=== PATIENT | female | born 1995 | race Caucasian/White ===

== ENCOUNTER → 2023-07-15 | Outpatient (CLI) | payer BC ==
[~2023-07-15] MED LIST: ANUS2.5C2 PR; COLA50CA3 PO; IBUP80TA PO; MAPA500T17 PO; MOM30SS PO; PRENTAB9 PO
[2023-07-15 15:42] LABS: HEMATOCRIT 39.4 % (36.0-47.0); HEMOGLOBIN 13.6 g/dl (12.0-15.5); MEAN CORPUSCULAR HEMOGLOBIN 32.2 pg (27.0-33.0); MEAN CORPUSCULAR HGB CONC 34.5 g/dl (32.0-36.5); MEAN CORPUSCULAR VOLUME 93.4 fl (80.0-96.0); PLATELET COUNT, AUTOMATED 214 10^3/uL (150-450); RED BLOOD COUNT 4.22 10^6/uL (4.00-5.40); WHITE BLOOD COUNT 7.5 10^3/uL (4.0-10.0)
[2023-07-15 16:46] LABS: HIV 1&2 SCREEN NEGATIVE (NEGATIVE)
[2023-07-15 16:53] LABS: HEPATITIS C VIRUS ABY INDEX 0.12 INDEX (<0.8)
[2023-07-15 17:31] LABS: GC DNA AMPLIFICATION NEGATIVE (NEGATIVE)
== END ==
LOC: M PLALAB 14:05
PROVIDERS: ATTEND Obstetrics & Gynecology
DX: Z34.91 Encounter for supervision of normal pregnancy, unspecified, first trimester (principal)

== ENCOUNTER → 2023-08-18 | Outpatient (CLI) | payer BC | LOC: M PLALAB 09:40 | PROVIDERS: ATTEND Obstetrics & Gynecology | DX: Z34.91 Encounter for supervision of normal pregnancy, unspecified, first trimester (principal) ==

== ENCOUNTER → 2023-09-28 | Outpatient (CLI) | payer BC | LOC: M WHC 08:22 | PROVIDERS: ATTEND Obstetrics & Gynecology | DX: Z34.92 Encounter for supervision of normal pregnancy, unspecified, second trimester (principal); Z3A.18 18 weeks gestation of pregnancy ==

== ENCOUNTER → 2023-11-19 | Outpatient (CLI) | payer BC ==
[2023-11-19 16:13] LABS: HEMATOCRIT 30.7 % (36.0-47.0); HEMOGLOBIN 10.6 g/dl (12.0-15.5); MEAN CORPUSCULAR HEMOGLOBIN 32.8 pg (27.0-33.0); MEAN CORPUSCULAR HGB CONC 34.5 g/dl (32.0-36.5); PLATELET COUNT, AUTOMATED 193 10^3/uL (150-450); RED BLOOD COUNT 3.23 10^6/uL (4.00-5.40); WHITE BLOOD COUNT 8.9 10^3/uL (4.0-10.0)
[2023-11-19 17:50] LABS: CHLAMYDIA DNA AMPLIFICATION NEGATIVE (NEGATIVE); GC DNA AMPLIFICATION NEGATIVE (NEGATIVE)
== END ==
LOC: M PLALAB 12:26
PROVIDERS: ATTEND Obstetrics & Gynecology
DX: O34.211 Maternal care for low transverse scar from previous cesarean delivery (principal); Z3A.00 Weeks of gestation of pregnancy not specified

== ENCOUNTER → 2023-12-11 | Outpatient (CLI) | payer BC ==
[2023-12-11 14:13] LABS: HEMATOCRIT 30.4 % (36.0-47.0); HEMOGLOBIN 10.2 g/dl (12.0-15.5); MEAN CORPUSCULAR HEMOGLOBIN 31.6 pg (27.0-33.0); MEAN CORPUSCULAR HGB CONC 33.6 g/dl (32.0-36.5); MEAN CORPUSCULAR VOLUME 94.1 fl (80.0-96.0); PLATELET COUNT, AUTOMATED 207 10^3/uL (150-450); RED BLOOD COUNT 3.23 10^6/uL (4.00-5.40); WHITE BLOOD COUNT 7.5 10^3/uL (4.0-10.0)
== END ==
LOC: M PLALAB 09:14
PROVIDERS: ATTEND Obstetrics & Gynecology
DX: O34.211 Maternal care for low transverse scar from previous cesarean delivery (principal); Z3A.00 Weeks of gestation of pregnancy not specified

== ENCOUNTER 2023-12-29 22:15 | Outpatient (CLI) | payer BC ==
[~2023-12-29] VITALS: Ht 167.6 cm; Wt 64.7 kg
[2023-12-29 22:35] VITALS: BP 139/83
[2023-12-29] MEDS ORDERED: HOME MED LIST COMPLETE! XX SCH (22:45)
[2023-12-29 22:59] VITALS: BP 106/67
[2023-12-29] MEDS: LR 1,000 ML IV ONE (23:16)
[2023-12-30 00:43] LABS: HEMATOCRIT 28.7 % (36.0-47.0); HEMOGLOBIN 9.6 g/dl (12.0-15.5); MEAN CORPUSCULAR HEMOGLOBIN 30.8 pg (27.0-33.0); MEAN CORPUSCULAR HGB CONC 33.4 g/dl (32.0-36.5); PLATELET COUNT, AUTOMATED 182 10^3/uL (150-450); RED BLOOD COUNT 3.12 10^6/uL (4.00-5.40); WHITE BLOOD COUNT 8.6 10^3/uL (4.0-10.0)
== END 2023-12-30 | disposition home or self-care (01) ==
LOC: M LDO 22:15
PROVIDERS: ATTEND Obstetrics & Gynecology
DX: O36.8130 Decreased fetal movements, third trimester, not applicable or unspecified (principal); O21.8 Other vomiting complicating pregnancy; O99.013 Anemia complicating pregnancy, third trimester; O34.219 Maternal care for unspecified type scar from previous cesarean delivery; O09.293 Supervision of pregnancy with other poor reproductive or obstetric history, third trimester; D50.9 Iron deficiency anemia, unspecified; Z87.59 Personal history of other complications of pregnancy, childbirth and the puerperium; Z3A.31 31 weeks gestation of pregnancy
CPT/HCPCS: 59025; 85027; G0463

== ENCOUNTER 2023-12-30 13:02 | Outpatient (CLI) | payer BC ==
[~2023-12-30] VITALS: Ht 167.6 cm; Wt 64.0 kg
[2023-12-30 13:30] VITALS: BP 119/68; O2SAT 99
[2023-12-30] MEDS: IRON SUCROSE 500 MG in NS 250 ML OVER 4 HRS IV ONE (14:12)
[2023-12-30 15:15] VITALS: BP 102/57; O2SAT 98
[2023-12-30 16:30] VITALS: BP 107/62; O2SAT 99
[2023-12-30 17:30] VITALS: BP 109/64; O2SAT 99
[2023-12-30 18:22] VITALS: BP 102/62; O2SAT 99
== END 2023-12-30 18:22 ==
LOC: M INFU 13:02
PROVIDERS: ATTEND Obstetrics & Gynecology
DX: D64.9 Anemia, unspecified (principal)
CPT/HCPCS: 96365; 96366; J1756

== ENCOUNTER 2024-01-04 11:59 | Outpatient (CLI) | payer BC ==
[~2024-01-04] VITALS: Ht 167.6 cm; Wt 64.6 kg
[2024-01-04 12:15] VITALS: BP 111/77
[2024-01-04] MEDS ORDERED: HOME MED LIST COMPLETE! XX SCH (12:30)
[2024-01-04 14:12] VITALS: BP 119/83
[2024-01-04] MEDS: BETAMETHASONE SOLUSPAN 6MG/ML 5ML VIAL IM SCH (14:14)
[2024-01-04 16:49] VITALS: BP 112/76
[2024-01-04 18:35] VITALS: BP 112/67
[2024-01-04 20:06] VITALS: BP 123/67
[2024-01-05 06:01] VITALS: BP 102/56
[2024-01-05 13:53] VITALS: BP 116/74
== END 2024-01-05 14:30 | disposition home or self-care (01) ==
LOC: M LDO 11:59
PROVIDERS: ATTEND Advanced Practice Midwife
DX: O46.93 Antepartum hemorrhage, unspecified, third trimester (principal); O34.211 Maternal care for low transverse scar from previous cesarean delivery; O09.293 Supervision of pregnancy with other poor reproductive or obstetric history, third trimester; Z3A.32 32 weeks gestation of pregnancy
CPT/HCPCS: 59025; 76815; 87081; 96372; G0463; J0702

== ENCOUNTER → 2024-01-14 | Outpatient (CLI) | payer BC | LOC: M WHC 07:05 | PROVIDERS: ATTEND Obstetrics & Gynecology | DX: O09.293 Supervision of pregnancy with other poor reproductive or obstetric history, third trimester (principal); Z3A.32 32 weeks gestation of pregnancy ==

== ENCOUNTER → 2024-01-21 | Outpatient (CLI) | payer BC ==
[2024-01-21 14:45] LABS: HEMATOCRIT 33.8 % (36.0-47.0); MEAN CORPUSCULAR HEMOGLOBIN 31.3 pg (27.0-33.0); MEAN CORPUSCULAR HGB CONC 32.5 g/dl (32.0-36.5); MEAN CORPUSCULAR VOLUME 96.3 fl (80.0-96.0); PLATELET COUNT, AUTOMATED 160 10^3/uL (150-450); RED BLOOD COUNT 3.51 10^6/uL (4.00-5.40); WHITE BLOOD COUNT 6.9 10^3/uL (4.0-10.0)
== END ==
LOC: M PLALAB 08:52
PROVIDERS: ATTEND Obstetrics & Gynecology
DX: O34.211 Maternal care for low transverse scar from previous cesarean delivery (principal); Z3A.00 Weeks of gestation of pregnancy not specified

== ENCOUNTER 2024-01-26 18:41 | Outpatient (CLI) | payer BC | END 2024-01-26 21:42 | disposition home or self-care (01) | LOC: M LDO 18:41 | PROVIDERS: ATTEND Obstetrics & Gynecology | DX: O36.8330 Maternal care for abnormalities of the fetal heart rate or rhythm, third trimester, not applicable or unspecified (principal); O26.893 Other specified pregnancy related conditions, third trimester; O34.219 Maternal care for unspecified type scar from previous cesarean delivery; O09.293 Supervision of pregnancy with other poor reproductive or obstetric history, third trimester; R25.2 Cramp and spasm; Z3A.35 35 weeks gestation of pregnancy | CPT/HCPCS: 59025; 76819; G0463 ==

== ENCOUNTER → 2024-01-26 | Outpatient (CLI) | payer BC | LOC: M RAD 16:13 | PROVIDERS: ATTEND Obstetrics & Gynecology | DX: O09.293 Supervision of pregnancy with other poor reproductive or obstetric history, third trimester (principal); Z3A.34 34 weeks gestation of pregnancy ==

== ENCOUNTER 2024-02-29 05:09 | Inpatient (IN) | payer BC ==
[2024-02-29] VITALS (9 sets, daily range): BP systolic 88–116; BP diastolic 50–80; O2SAT 96–98
[~2024-02-29] VITALS: Ht 167.6 cm; Wt 65.5 kg
[~2024-02-29 05:09] MED LIST changes: +PREN200C PO
[2024-02-29] MEDS: LACTATED RINGER'S 1000 ML IV STA (05:54)
[2024-02-29 06:04] LABS: HEMATOCRIT 32.7 % (36.0-47.0); HEMOGLOBIN 11.2 g/dl (12.0-15.5); MEAN CORPUSCULAR HEMOGLOBIN 30.7 pg (27.0-33.0); MEAN CORPUSCULAR HGB CONC 34.3 g/dl (32.0-36.5); MEAN CORPUSCULAR VOLUME 89.6 fl (80.0-96.0); PLATELET COUNT, AUTOMATED 191 10^3/uL (150-450); RED BLOOD COUNT 3.65 10^6/uL (4.00-5.40); WHITE BLOOD COUNT 7.6 10^3/uL (4.0-10.0)
[2024-02-29] MEDS ORDERED: HOME MED LIST COMPLETE! XX SCH (06:20)
[2024-02-29] MEDS: LR 1,000 ML IV SCH ×2 (07:11→13:57)
[2024-02-29] MEDS ORDERED: MORPHINE PRES-FREE INJ 10 MG/10 ML VIAL As Ordered ONE (07:19)
[2024-02-29] MEDS: ceFAZolin SOD 2 GM in IV 1 EA IV ONE (07:20)
[2024-02-29] MEDS: BICITRA 30ML SOLN UDC PO ONE (07:20)
[2024-02-29] MEDS ORDERED: OXYTOCIN 30UNITS IN 0.9% NaCl 500ML IV BAG As Ordered ONE (07:22)
[2024-02-29] MEDS ORDERED: ONDANSETRON 4MG 2ML VIAL As Ordered ONE (07:22)
[2024-02-29] MEDS ORDERED: GLYCOPYRROLATE INJ 0.2 MG/ML 2 ML VIAL As Ordered ONE (08:03)
[2024-02-29] MEDS ORDERED: RHO(D) IMMUNE GLOBULIN/MALTOSE 500MCG(2500IU)/2.2ML VIAL (WINRHO) IM SCH (08:10)
[2024-02-29] MEDS ORDERED: ONDANSETRON 4MG 2ML VIAL IV PRN ×2 (08:10→09:00)
[2024-02-29] MEDS ORDERED: PERCOCET 5MG/325MG TAB PO PRN ×2 (08:10)
[2024-02-29] MEDS ORDERED: SIMETHICONE 80MG CHEW TAB PO PRN (08:10)
[2024-02-29] MEDS ORDERED: MOM 30ML SUSPENSION UDC PO PRN (08:10)
[2024-02-29] MEDS ORDERED: OXYTOCIN INJ 10UNITS/ML 1ML VIAL As Ordered ONE (08:22)
[2024-02-29] MEDS ORDERED: ePHEDrine SULFATE 25 MG/5 ML(5MG/ML) SYRINGE As Ordered ONE (08:24)
[2024-02-29] MEDS ORDERED: KETOROLAC 60MG 2ML VIAL As Ordered ONE (08:24)
[2024-02-29] MEDS ORDERED: PHENYLephrine 500MCG 5ML (100MCG/ML) SYRINGE As Ordered ONE (08:24)
[2024-02-29] MEDS ORDERED: ACETAMINOPHEN 1000MG 100ML IV BAG As Ordered ONE (08:24)
[2024-02-29] MEDS ORDERED: MEPERIDINE 25 MG/ML 1ML VIAL IV PRN (09:00)
[2024-02-29] MEDS: PRENATAL VITAMINS CHEWABLE TABLET PO SCH (09:00)
[2024-02-29] MEDS: DOCUSATE SODIUM 100MG CAPSULE PO SCH (09:00)
[2024-02-29] MEDS ORDERED: diphenhydrAMINE 50MG/ML VIAL IV PRN (09:00)
[2024-02-29] MEDS ORDERED: NALOXONE INJ 0.4MG/1ML VIAL IV PRN ×2 (09:00)
[2024-02-29] MEDS ORDERED: oxyCODONE 5MG TAB PO PRN (09:00)
[2024-02-29] MEDS ORDERED: **NOTE PATIENT COMMENT** MISC XX SCH (09:00)
[2024-02-29] MEDS ORDERED: METOCLOPRAMIDE INJ 10MG/2ML VIAL IV PRN (09:00)
[2024-02-29] MEDS ORDERED: fentaNYL 100 MCG/2 ML INJECTION IV PRN (09:00)
[2024-02-29] MEDS ORDERED: HYDROMORPHONE HCL 0.5 MG/ 0.5 ML SYRINGE IV PRN (09:00)
[2024-02-29] MEDS: OXYTOCIN DRIP 30 UNITS in IV 1 EA IV SCH (09:07)
[2024-02-29] MEDS: SLF 3 ML SYR IV SCH (15:00)
[2024-02-29] MEDS: KETOROLAC 30 MG/ML 1ML VIAL IV SCH (15:01)
[2024-02-29] MEDS ORDERED: ACETAMINOPHEN TAB 650MG DOSE (2X325MG) PO PRN (15:55)
[2024-03-01 02:00] VITALS: BP 96/52; O2SAT 98
[2024-03-01 06:00] VITALS: BP 105/57; O2SAT 100
[2024-03-01 06:54] LABS: MEAN CORPUSCULAR HEMOGLOBIN 31.7 pg (27.0-33.0); MEAN CORPUSCULAR HGB CONC 33.8 g/dl (32.0-36.5); MEAN CORPUSCULAR VOLUME 93.8 fl (80.0-96.0); PLATELET COUNT, AUTOMATED 148 10^3/uL (150-450); WHITE BLOOD COUNT 9.6 10^3/uL (4.0-10.0)
[2024-03-01 06:58] LABS: HEMOGLOBIN 7.6 g/dl (12.0-15.5)
[2024-03-01 06:59] LABS: HEMATOCRIT 22.5 % (36.0-47.0)
[2024-03-01] MEDS: FERROUS SULFATE 300MG/5ML UDC LIQUID PO SCH (09:00)
[2024-03-01 10:00] VITALS: BP 97/54; O2SAT 97
[2024-03-01] MEDS: IBUPROFEN 800 MG TAB PO SCH (11:00)
[2024-03-01 14:00] VITALS: BP 109/64; O2SAT 97
[2024-03-01] MEDS: ACETAMINOPHEN 500 MG TAB PO PRN (16:58)
[2024-03-01 18:05] VITALS: BP 102/64; O2SAT 98
[2024-03-01 22:00] VITALS: BP 105/51; O2SAT 97
[2024-03-02 02:00] VITALS: BP 99/54; O2SAT 98
[2024-03-02 06:00] VITALS: BP 122/59; O2SAT 97
[2024-03-02 07:15] VITALS: BP 122/59; TEMP 97.7; O2SAT 97
[2024-03-02] MEDS ORDERED: COLA100C5 PO (08:10)
[2024-03-02] MEDS ORDERED: IBUP80TA PO (08:10)
[2024-03-02] MEDS: MEASLES,MUMPS,RUBELLA VACCINE INJ (MMR-II) SC.IMMUN ONE (09:00)
[2024-03-02 10:00] VITALS: BP 119/64; O2SAT 98
== END 2024-03-02 12:14 | disposition home or self-care (01) | DRG 540 ==
LOC: M LDI 05:09 → M OBS 10:18
PROVIDERS: ADMIT Obstetrics & Gynecology; ATTEND Obstetrics & Gynecology
PROC: 10D00Z1 Extraction of Products of Conception, Low, Open Approach (ICD-10-PCS; principal; 2024-02-29 07:30)
DX: O34.211 Maternal care for low transverse scar from previous cesarean delivery (principal); Z37.0 Single live birth; Z3A.40 40 weeks gestation of pregnancy

== ENCOUNTER → 2024-09-30 | Outpatient (REF) | payer BC ==
[~2024-09-30] MED LIST changes: +COLA100C5 PO
[2024-10-04 12:51] LABS: HPV APTIMA Not Detected (Not Detected)
== END ==
LOC: M SFHCWAGY 17:13
PROVIDERS: ATTEND Obstetrics & Gynecology
DX: Z12.4 Encounter for screening for malignant neoplasm of cervix (principal)
CPT/HCPCS: 87624; G0123